=== PATIENT | female | born 1965 ===

== ENCOUNTER 2023-03-30 14:47 | Emergency (ER) | payer OTHER ==
[~2023-03-30] VITALS: Ht 165.1 cm; Wt 87.7 kg
[2023-03-30] MEDS ORDERED: IBUPROFEN 800 MG TAB PO ONE (15:45)
[2023-03-30] MEDS ORDERED: TETANUS-DIPTH-ACEL PERTUSSIS 0.5ML SYR Tdap IM ONE (15:45)
[2023-03-30] MEDS ORDERED: LIDOCAINE 1% HCL (LOCAL ANESTH.) INJ 20ML MDV ID ONE (15:45)
[2023-03-30] MEDS ORDERED: IBUP1TAB5 PO ×2 (15:48)
[2023-03-30] MEDS ORDERED: MUPI2OIN2 EX (15:48)
[2023-03-30] MEDS ORDERED: CEPH500C PO (15:48)
[2023-03-30 15:57] VITALS: BP 130/64; PULSE 99; RESP 18; TEMP 97.7; O2SAT 100
== END 2023-03-30 16:02 | disposition home or self-care (01) ==
LOC: ER 14:47
DX: S81.811A Laceration without foreign body, right lower leg, initial encounter (principal); W22.8XXA Striking against or struck by other objects, initial encounter; Y93.89 Activity, other specified; Y92.89 Other specified places as the place of occurrence of the external cause; Y99.8 Other external cause status
CPT/HCPCS: 12002; 90471; 90715; 99283; J2001